=== PATIENT | male | born 1955 | race Caucasian/White ===

== ENCOUNTER 2024-06-10 17:05 | Emergency (ER) | payer MEDICARE ==
[2024-06-10] MEDS ORDERED: SODIUM CHLORIDE 0.9% 1,000 ML BAG ONE (18:40)
[2024-06-10] MEDS ORDERED: MORPHINE SULFATE 4 MG/ML SYRINGE ONE (18:45)
[2024-06-10] MEDS ORDERED: ACETAMINOPHEN TAB 325 MG TAB ONE (18:45)
[2024-06-11] MEDS ORDERED: AZITHROMYCIN 500 MG TAB ONE (03:55)
[2024-06-11] MEDS ORDERED: cefTRIAXone IN SWFI 1,000 MG/10 ML SYRINGE IVP ONE (03:55)
--- NOTE | 2024-07-15 09:42 | CT ---
EXAM: CT Chest Without Intravenous Contrast CLINICAL HISTORY: Abd pain, fever TECHNIQUE: Axial computed tomography images of the chest without intravenous contrast. CTDI is 14.6 mGy and DLP is 876.4 mGy-cm. This CT exam was performed using one or more of the following dose reduction techniques: automated exposure control, adjustment of the mA and/or kV according to patient size, and/or use of iterative reconstruction technique. COMPARISON: No relevant prior studies available. FINDINGS: Lungs:RIGHT upper lobe pneumonia. Additional areas of pneumonia/infiltrate in the RIGHT middle lobe and RIGHT lower lobe. Severe centrilobular emphysema. No mass. Pleural space:Unremarkable. No pneumothorax. No significant effusion. Heart:Unremarkable. No cardiomegaly. No significant pericardial effusion. No significant coronary artery calcifications. Bones/joints:Degenerative changes of the spine. No acute fracture. No dislocation. Soft tissues:Unremarkable. Vasculature:Atherosclerotic changes of the aorta. No thoracic aortic aneurysm. Lymph nodes:Unremarkable. No enlarged lymph nodes. IMPRESSION: RIGHT upper lobe pneumonia. Additional areas of pneumonia/infiltrate in the RIGHT middle lobe and RIGHT lower lobe. EXAM: CT Abdomen and Pelvis Without Intravenous Contrast CLINICAL HISTORY: abd pain, fever TECHNIQUE: Axial computed tomography images of the abdomen and pelvis without intravenous contrast. CTDI is 14.6 mGy and DLP is 876.4 mGy-cm. This CT exam was performed using one or more of the following dose reduction techniques: automated exposure control, adjustment of the mA and/or kV according to patient size, and/or use of iterative reconstruction technique. COMPARISON: No relevant prior studies available. FINDINGS: Lung bases:Unremarkable. No mass. No consolidation. ABDOMEN: Liver:Unremarkable. Gallbladder and bile ducts:Unremarkable. No calcified stones. No ductal dilation. Pancreas:Unremarkable. No ductal dilation. Spleen:Unremarkable. No splenomegaly. Adrenals:Unremarkable. No mass. Kidneys and ureters:Bilateral nephroureteral stents, which both terminate in the urinary bladder. Atrophied RIGHT kidney. No obstructing stones. No hydronephrosis. Stomach and bowel:Diverticulosis, without acute diverticulitis. No small bowel obstruction. No free intraperitoneal air. PELVIS: Appendix:No findings to suggest acute appendicitis. Bladder:Unremarkable. No stones. Reproductive:Unremarkable as visualized. ABDOMEN and PELVIS: Intraperitoneal space:Unremarkable. No free air. No significant fluid collection. Bones/joints:Degenerative changes of the spine. No acute fracture. No dislocation. Soft tissues:Unremarkable. Vasculature: Infrarenal abdominal aortic aneurysm measures 3.2 cm. Atherosclerotic changes of the aorta. Lymph nodes:Unremarkable. No enlarged lymph nodes. IMPRESSION: 1. Bilateral nephroureteral stents, which both terminate in the urinary bladder. Atrophied RIGHT kidney. 2. Diverticulosis, without acute diverticulitis. No small bowel obstruction. No free intraperitoneal air. Radiologist: Richard Sandhu MD Electronically Signed: 06/11/24 02:16 Study ready at 02:10 and initial results transmitted at 02:16 [facility]
== END 2024-06-11 06:26 | disposition home or self-care (01) ==
LOC: EC 17:05
CPT/HCPCS: 71250; 74176; 87040; 96374; 96375; 99284